=== PATIENT | female | born 1970 | race African-American/Black ===

== ENCOUNTER 2019-05-14 08:58 | Outpatient (CLI) | payer OTHER ==
--- NOTE | 2019-05-14 11:21 | ULT ---
THYROID ULTRASOUND: HISTORY: Thyroid nodule. COMPARISON: None. TECHNIQUE: Sagittal and transverse imaging of the thyroid gland is performed. FINDINGS: Thyroid isthmus measures 0.4 cm. The right thyroid lobe measures 4.9 x 1.8 x 2.1 cm. The left thyroid lobe measures 5.1 x 1.5 x 1.6 c m. In the upper pole of the right thyroid lobe is an anechoic focus with a central calcification measuri ng 0.6 cm. There is a mixed echogenic focus in the mid portion of the right thyroid lobe measuring 0 .6 x 0.6 x 0.5 cm. There do appear to be internal septations. In the mid portion of the left thyroi d lobe is a complex echotexture structure measuring 0.8 x 0.8 x 1.0 cm. IMPRESSION: Multiple nodules in the thyroid gland as described above. TIRADS calculator for the largest nodules which is in the left thyroid lobe is TR4, moderately suspicious. Followup imaging of the thyroid gla nd is recommended in 1 year. POS: OFF
== END 2019-05-14 08:59 | disposition home or self-care (01) ==
LOC: BICULT 08:58
PROVIDERS: ATTEND Family Medicine
DX: E04.2 Nontoxic multinodular goiter (principal)
CPT/HCPCS: 76536

== ENCOUNTER 2019-06-29 08:42 | Day surgery (SDC) | payer OTHER ==
[2019-06-26 10:13] VITALS: BMI 30.4
--- NOTE | 2019-06-29 11:06 | OP ---
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 PROCEDURE PERFORMED: Esophagogastroduodenoscopy, diagnostic. INDICATION: Chronic gastroesophageal reflux disease. MEDICATIONS: See Anesthesia record. FINDINGS: After discussion of the risks, benefits, and alternatives of the procedure, informed consent was obtained and witnessed. Pre-endoscopic cardiopulmonary examination was satisfactory. Time-out was performed before sedation was achieved. Sedation was achieved with Anesthesia assistance in the Endoscopy Unit. A Pentax adult upper endoscope was placed into the oropharynx and passed through the cricopharyngeus under direct visualization. The esophageal mucosa appeared normal throughout with a normal-appearing Z-line at 39 cm from the incisors. The endoscope was advanced into the stomach. Forward and retroflexed views of the entire gastric mucosa were obtained. The gastric mucosa appeared normal throughout. The endoscope was advanced through the pylorus and into the first and second portions of the duodenum, which appeared normal. There was no evidence of any Johnson's mucosa. There was no evidence of any hiatal hernia. The upper endoscope was completely withdrawn and the patient allowed to recover. The patient tolerated the procedure well. There were no immediate postprocedure complications. IMPRESSION: Normal esophagogastroduodenoscopy. RECOMMENDATIONS: Continue with omeprazole 40 mg daily, as this does adequately control her chronic reflux symptoms. Continue also with nonpharmacologic anti-reflux measures. She can follow up in the [facility] as needed. Job ID: [id number]
[2019-06-29] MEDS ORDERED: PROPOFOL 200 MG/20 ML VIAL ONE (14:22)
== END 2019-06-29 11:25 ==
LOC: SDC 08:42
PROVIDERS: ATTEND Internal Medicine
PROC: 0DJ08ZZ Inspection of Upper Intestinal Tract, Via Natural or Artificial Opening Endoscopic (ICD-10-PCS; principal; 2019-06-29)
DX: K21.9 Gastro-esophageal reflux disease without esophagitis (principal)
CPT/HCPCS: J2704